=== PATIENT | male | born 1955 | race Caucasian/White ===

== ENCOUNTER 2020-09-08 08:42 | Outpatient (CLI) | payer BC ==
[2020-09-08] MEDS ORDERED: Magnevist 469MG/ML 20 ML VIAL ONE (11:39)
== END 2020-09-08 08:43 | disposition home or self-care (01) ==
LOC: MRI 08:42
PROVIDERS: ATTEND Otolaryngology Plastic Surgery within the Head & Neck
DX: H90.A21 Sensorineural hearing loss, unilateral, right ear, with restricted hearing on the contralateral side (principal); H91.21 Sudden idiopathic hearing loss, right ear; H83.01 Labyrinthitis, right ear
CPT/HCPCS: 70553; A9579

== ENCOUNTER 2020-10-28 21:09 | Inpatient (IN) | payer BC ==
[~2020-10-28 21:09] MED LIST: Iopamidol-370 76% 500 ML 1 ML ONE
[2020-10-28 21:30] LABS: Hemoglobin 13.5 g/dL (14.0-18.0); Mean Corpuscular HGB CONC 33.7 g/dL (32.0-36.0); Mean Corpuscular Hemoglobin 33.5 pg (27.0-31.0); Mean Corpuscular Volume 99.6 fL (78.0-98.0); Mean Platelet Volume 6.2 fL (7.4-10.4); Platelet Count 350 thou/uL (130-400); RBC Distribution Width 12.6 % (11.5-14.5); Red Blood Cell (RBC) Count 4.04 mill/uL (4.70-6.10); White Blood Cell (WBC) Count 19.7 thou/uL (4.8-10.8)
[2020-10-28] MEDS ORDERED: Cefepime 2 GM VIAL ONE (21:34)
[2020-10-28 21:37] LABS: Prothrombin Time 13.3 sec (12.0-14.7)
[2020-10-28 21:48] LABS: Lymphocytes 1 % (21-51); MDiff Complete? YES; Monocytes 3 % (0-10); Neutrophil 95 % (42-75); Platelet Morphology Comment Appears Adequate
[2020-10-28] MEDS ORDERED: Lorazepam 2 MG/ML VIAL ONE (21:50)
[2020-10-28 21:54] LABS: ALT (SGPT) 92 U/L (8-55); AST (SGOT) 142 U/L (5-34); Albumin 4.1 g/dL (3.4-4.8); Alkaline Phosphatase 106 U/L (40-110); Anion Gap 31 mmol/L (10-20); BUN (Urea Nitrogen) 20 mg/dL (8.4-25.7); Bilirubin, Total 1.4 mg/dL (0.2-1.2); Calc. Creatinine Clearance 0 mL/min (70-130); Calcium 9.1 mg/dL (7.8-10.44); Carbon Dioxide 11 mmol/L (23-31); Chloride 97 mmol/L (98-107); Glucose 112 mg/dL (80-115); Lipase 40 U/L (8-78); Potassium 4.7 mmol/L (3.5-5.1); Protein, Total 8.1 g/dL (5.8-8.1); Sodium 134 mmol/L (136-145)
[2020-10-28] MEDS ORDERED: Vancomycin 1 GM/200 ML BAG ONE ×2 (22:20→23:17)
[2020-10-28 22:23] LABS: Analyzer IN Cardio ER; Base Excess (BEa) -8.2 mEq/L (-2.0 to +3.0); Calcium, Ionized (arterial) 1.02 mmol/L (1.12-1.30); Carboxyhemoglobin (COHb) 0.3 gm% (0.0-3.0); O2 Tension (PaO2), arterial 78.9 mmHg (> 80.0); pH, Arterial 7.39 (7.35-7.45)
[2020-10-28 22:25] LABS: CO2 Tension 25.6 mmHg (35.0-45.0); Puncture Site LRA
[2020-10-28] MEDS ORDERED: Ondansetron PF 4 MG/2 ML Vial ONE (23:47)
[2020-10-28 23:50] LABS: SARS-CoV-2 NAA Rapid Test Not Detected (NotDetected)
[2020-10-29 00:17] LABS: Hemoglobin 12.4 g/dL (14.0-18.0)
[2020-10-29] MEDS ORDERED: Diazepam 5 MG TAB PO PRN (00:24)
[2020-10-29] MEDS ORDERED: Thiamine HCl 200 MG/2 ML VIAL IM SCH (00:30)
[2020-10-29] MEDS ORDERED: Diazepam 5 MG TAB PO SCH (00:30)
[2020-10-29 00:32] LABS: Lactic Acid 3.8 mmol/L (0.5-2.2)
[2020-10-29 01:04] LABS: Magnesium 1.2 mg/dL (1.6-2.6); Phosphorus 5.1 mg/dL (2.3-4.7)
[2020-10-29] MEDS ORDERED: Ondansetron PF 4 MG/2 ML Vial IVP PRN ×2 (02:15→02:48)
[2020-10-29] MEDS ORDERED: Ondansetron ODT 4 MG TAB SL PRN (02:15)
[2020-10-29] MEDS ORDERED: Acetaminophen 325 MG TAB PO PRN ×2 (02:15→02:48)
[2020-10-29] MEDS ORDERED: Acetaminophen 650 MG Suppository PR PRN (02:48)
[2020-10-29] MEDS ORDERED: Lorazepam 2 MG/ML VIAL SLOW IVP PRN (02:48)
[2020-10-29] MEDS ORDERED: Ondansetron ODT 4 MG TAB PO PRN (02:48)
[2020-10-29] MEDS: Lactated Ringer's 1,000 ML IV SCH ×4 (03:26→20:17)
[2020-10-29 04:11] VITALS: BMI 27.8
[2020-10-29] MEDS ORDERED: Magnesium 2 GM/50 ML 2 GM in Premix Bag 1 BAG IVPB SCH (04:45)
[2020-10-29 05:00] LABS: #Lymphocytes 0.7 thou/uL (1.20-3.40); #Neutrophils 8.7 thou/uL (1.40-6.50); %Basophils 0.2 % (0.0-1.0); %Eosinophils 0.1 % (0.0-10.0); %Lymphocytes 6.6 % (21.0-51.0); %Monocytes 9.9 % (0.0-10.0); %Neutrophils 83.3 % (42.0-75.0); Hemoglobin 11.6 g/dL (14.0-18.0); Mean Corpuscular Hemoglobin 36.1 pg (27.0-31.0); Platelet Count 242 thou/uL (130-400); RBC Distribution Width 12.4 % (11.5-14.5); Red Blood Cell (RBC) Count 3.22 mill/uL (4.70-6.10); White Blood Cell (WBC) Count 10.5 thou/uL (4.8-10.8)
[2020-10-29 05:16] LABS: Anion Gap 15 mmol/L (10-20); BUN (Urea Nitrogen) 22 mg/dL (8.4-25.7); Calc. Creatinine Clearance 57 mL/min (70-130); Calcium 7.8 mg/dL (7.8-10.44); Carbon Dioxide 20 mmol/L (23-31); Cardiac Risk 1.7 (Less than 4.5); Chloride 101 mmol/L (98-107); Cholesterol 161 mg/dl (< 200 Desired); Glucose 115 mg/dL (80-115); HDL Cholesterol 97 mg/dL (>60 Neg Risk); LDL Cholesterol, Calculated 52 mg/dL; Potassium 4.9 mmol/L (3.5-5.1); Sodium 131 mmol/L (136-145); Triglycerides 59 mg/dL (Less than 150)
[2020-10-29] MEDS ORDERED: Loratadine 10 MG TAB PO PRN (07:32)
[2020-10-29] MEDS: Pantoprazole 40 MG VIAL IVP SCH ×2 (08:16→20:17)
[2020-10-29] MEDS: Lisinopril 10 MG TAB PO SCH ×2 (08:16→20:15)
[2020-10-29] MEDS: Rosuvastatin 10 MG TAB PO SCH (08:17)
[2020-10-29] MEDS: Folic Acid 1 MG TAB PO SCH (08:17)
[2020-10-29] MEDS: Cefepime 2 GM in Sodium Chloride 0.9% 100 ML IVPB SCH ×2 (08:17→20:17)
[2020-10-29] MEDS: Metoprolol Tartrate 100 MG TAB PO SCH (08:17)
[2020-10-29] MEDS: Multivitamin W/ Minerals 1 TAB PO SCH (08:17)
[2020-10-29 10:38] LABS: HBSAg Index 0.19 S/CO (0-0.99); Hep B Surf Ag Non-Reactive S/CO (NonReactive); Hep C IgG Ab Non-Reactive (NonReactive)
[2020-10-29] MEDS ORDERED: Vancomycin 1.5 GRAM/300 ML BAG 1.5 GM in Premix Bag 1 BAG IVPB SCH (22:00)
[2020-10-30] MEDS ORDERED: Diazepam 5 MG TAB PO PRN (04:00)
[2020-10-30 04:18] LABS: #Eosinphils 0.1 thou/uL (0.0-0.7); #Lymphocytes 1.2 thou/uL (1.20-3.40); #Monocytes 0.6 thou/uL (0.11-0.59); #Neutrophils 4.2 thou/uL (1.40-6.50); %Basophils 0.7 % (0.0-1.0); %Eosinophils 0.9 % (0.0-10.0); %Lymphocytes 20.2 % (21.0-51.0); %Monocytes 9.2 % (0.0-10.0); %Neutrophils 69.1 % (42.0-75.0); Hemoglobin 10.7 g/dL (14.0-18.0); Mean Corpuscular HGB CONC 34.1 g/dL (32.0-36.0); Mean Corpuscular Hemoglobin 34.6 pg (27.0-31.0); Mean Platelet Volume 6.2 fL (7.4-10.4); Platelet Count 199 thou/uL (130-400); RBC Distribution Width 12.5 % (11.5-14.5); Red Blood Cell (RBC) Count 3.08 mill/uL (4.70-6.10); White Blood Cell (WBC) Count 6.1 thou/uL (4.8-10.8)
[2020-10-30 04:42] LABS: Anion Gap 11 mmol/L (10-20); BUN (Urea Nitrogen) 17 mg/dL (8.4-25.7); Calc. Creatinine Clearance 71 mL/min (70-130); Calcium 7.8 mg/dL (7.8-10.44); Carbon Dioxide 25 mmol/L (23-31); Chloride 101 mmol/L (98-107); Glucose 100 mg/dL (80-115); Potassium 4.3 mmol/L (3.5-5.1); Sodium 133 mmol/L (136-145)
[2020-10-30] MEDS: Metoprolol Tartrate 100 MG TAB PO SCH (06:10)
[2020-10-30 06:20] LABS: ALT (SGPT) 55 U/L (8-55); AST (SGOT) 67 U/L (5-34)
[2020-10-30] MEDS ORDERED: ALPRAZolam 0.5 MG TAB PO PRN (08:24)
[2020-10-30] MEDS ORDERED: hydrOXYzine 25 MG TAB PO PRN (08:54)
[2020-10-30] MEDS ORDERED: Midazolam HCl 2 mg/2 ml Vial ONE (09:01)
[2020-10-30] MEDS ORDERED: PROPOFOL 200 MG/20 ML VIAL ONE (09:06)
[2020-10-30] MEDS ORDERED: Lidocaine 1% PF 5 ML VIAL ONE (09:06)
[2020-10-30] MEDS ORDERED: Glycopyrrolate 0.2 MG/ML 5 ML SYRINGE ONE (09:06)
[2020-10-30] MEDS: Pantoprazole 40 MG VIAL IVP SCH (10:57)
[2020-10-30] MEDS: Folic Acid 1 MG TAB PO SCH (10:58)
[2020-10-30] MEDS: Magnesium Oxide 400 MG TAB PO SCH (10:58)
[2020-10-30] MEDS: Lisinopril 10 MG TAB PO SCH ×2 (10:58→19:54)
[2020-10-30] MEDS: Multivitamin W/ Minerals 1 TAB PO SCH (10:58)
[2020-10-30] MEDS: Thiamine 100 MG TAB PO SCH (10:58)
[2020-10-30] MEDS: Rosuvastatin 10 MG TAB PO SCH (10:58)
[2020-10-30] MEDS: Lactated Ringer's 1,000 ML IV SCH ×3 (14:09→19:50)
[2020-10-31] MEDS: Lactated Ringer's 1,000 ML IV SCH (05:07)
[2020-10-31 06:44] LABS: #Eosinphils 0.1 thou/uL (0.0-0.7); #Lymphocytes 1.4 thou/uL (1.20-3.40); #Monocytes 0.6 thou/uL (0.11-0.59); #Neutrophils 3.6 thou/uL (1.40-6.50); %Basophils 0.7 % (0.0-1.0); %Eosinophils 2.4 % (0.0-10.0); %Lymphocytes 24.1 % (21.0-51.0); %Monocytes 10.2 % (0.0-10.0); %Neutrophils 62.6 % (42.0-75.0); Hemoglobin 10.5 g/dL (14.0-18.0); Mean Corpuscular HGB CONC 34.3 g/dL (32.0-36.0); Mean Corpuscular Hemoglobin 34.8 pg (27.0-31.0); Mean Platelet Volume 6.3 fL (7.4-10.4); Platelet Count 191 thou/uL (130-400); RBC Distribution Width 12.2 % (11.5-14.5); Red Blood Cell (RBC) Count 3.02 mill/uL (4.70-6.10); White Blood Cell (WBC) Count 5.8 thou/uL (4.8-10.8)
[2020-10-31 07:05] LABS: ALT (SGPT) 69 U/L (8-55); AST (SGOT) 117 U/L (5-34); Albumin 3.4 g/dL (3.4-4.8); Alkaline Phosphatase 80 U/L (40-110); Anion Gap 13 mmol/L (10-20); BUN (Urea Nitrogen) 12 mg/dL (8.4-25.7); Bilirubin, Total 1.3 mg/dL (0.2-1.2); Calc. Creatinine Clearance 84 mL/min (70-130); Calcium 8.7 mg/dL (7.8-10.44); Carbon Dioxide 25 mmol/L (23-31); Chloride 99 mmol/L (98-107); Glucose 95 mg/dL (80-115); Potassium 4.4 mmol/L (3.5-5.1); Protein, Total 6.4 g/dL (5.8-8.1); Sodium 133 mmol/L (136-145)
[2020-10-31 07:45] VITALS: BP 159/88; TEMP 98.1
[2020-10-31] MEDS: Multivitamin W/ Minerals 1 TAB PO SCH (09:33)
[2020-10-31] MEDS: Thiamine 100 MG TAB PO SCH (09:33)
[2020-10-31] MEDS: Folic Acid 1 MG TAB PO SCH (09:33)
[2020-10-31] MEDS: Rosuvastatin 10 MG TAB PO SCH (09:33)
[2020-10-31] MEDS: Magnesium Oxide 400 MG TAB PO SCH (09:33)
[2020-10-31] MEDS: Metoprolol Tartrate 100 MG TAB PO SCH (09:33)
[2020-10-31] MEDS: Lisinopril 10 MG TAB PO SCH (09:33)
== END 2020-10-31 12:05 | disposition home or self-care (01) | DRG 378 ==
LOC: ERS 21:09 → CCU 23:03 → IMCU/EMU 10-29 20:03 → ONC 10-30 12:49
PROVIDERS: ADMIT Family Medicine; ATTEND Family Medicine
PROC: 0DB78ZX Excision of Stomach, Pylorus, Via Natural or Artificial Opening Endoscopic, Diagnostic (ICD-10-PCS; principal; 2020-10-30)
DX: K29.21 Alcoholic gastritis with bleeding (principal); G45.9 Transient cerebral ischemic attack, unspecified; N17.9 Acute kidney failure, unspecified; I48.91 Unspecified atrial fibrillation; E78.5 Hyperlipidemia, unspecified; F43.10 Post-traumatic stress disorder, unspecified; G89.29 Other chronic pain; Z80.6 Family history of leukemia; Z82.49 Family history of ischemic heart disease and other diseases of the circulatory system; F17.220 Nicotine dependence, chewing tobacco, uncomplicated; F10.10 Alcohol abuse, uncomplicated; R32 Unspecified urinary incontinence; K70.10 Alcoholic hepatitis without ascites; F41.9 Anxiety disorder, unspecified; K44.9 Diaphragmatic hernia without obstruction or gangrene; K21.00 Gastro-esophageal reflux disease with esophagitis, without bleeding; K29.70 Gastritis, unspecified, without bleeding; E86.0 Dehydration
CPT/HCPCS: 36415; 36600; 70450; 70496; 70498; 70551; 71045; 72148; 76705; 80048; 80053; 80061; 82274; 82550; 82805; 83605; 83690; 83735; 83880; 84100; 84145; 84443; 84450; 84460; 84484; 85014; 85018; 85025; 85610; 85730; 86803; 86850; 86900; 86901; 87040; 87340; 88305; 93005; 93306; 96365; 96367; 96375; C9113; J0692; J2060; J2250; J2405; J2704; J3370; J3475; J3490; Q9967; U0002

== ENCOUNTER 2023-11-20 10:24 | Outpatient (CLI) | payer BC, MEDICARE | END 2023-11-20 10:25 | disposition home or self-care (01) | LOC: BICRAD 10:24 | PROVIDERS: ATTEND Family Medicine | DX: M19.90 Unspecified osteoarthritis, unspecified site (principal) ==

== ENCOUNTER 2025-01-26 19:52 | Observation (INO) | payer MEDICARE ==
[2025-01-26 20:26] LABS: #Basophils 0.08 10x3/uL (0.0-0.2); #Eosinophils 0.20 10x3/uL (0.0-0.7); #Monocytes 0.73 10x3/uL (0.11-0.59); #Neutrophils 6.92 10x3/uL (1.40-6.50); %Basophils 0.8 % (0.0-1.0); %Eosinophils 2.0 % (0.0-10.0); %Lymphocytes 20.2 % (21.0-51.0); %Monocytes 7.3 % (0.0-10.0); %Neutrophils 69.4 % (42.0-75.0); Hematocrit 45.6 % (42.0-52.0); Hemoglobin 16.1 g/dL (14.0-18.0); Mean Corpuscular Hemoglobin 33.1 pg (27.0-31.0); Mean Corpuscular Volume 93.6 fL (78.0-98.0); Platelet Count 293 10x3/uL (130-400); Red Blood Cell (RBC) Count 4.87 mill/uL (4.70-6.10); White Blood Cell (WBC) Count 9.98 10x3/uL (4.8-10.8)
[2025-01-26 20:48] LABS: Troponin I Less than 0.010 ng/mL (< 0.028)
[2025-01-26 21:10] LABS: ALT (SGPT) 29 U/L (Less than 45); AST (SGOT) 47 U/L (11-34); Albumin 4.2 g/dL (3.1-4.5); Alkaline Phosphatase 89 U/L (40-110); Anion Gap 18 mmol/L (10-20); BUN (Urea Nitrogen) 11 mg/dL (8.4-25.7); Bilirubin, Total 1.3 mg/dL (0.3-1.2); CK (CPK) 43 U/L (30-200); Calc. Creatinine Clearance 0 mL/min (70-130); Calcium 9.8 mg/dL (7.8-10.44); Carbon Dioxide 22 mmol/L (23-31); Chloride 102 mmol/L (98-107); Globulin 4.5 g/dL (2.4-3.5); Glucose 109 mg/dL (80-115); Potassium 4.2 mmol/L (3.5-5.1); Sodium 138 mmol/L (136-145)
[2025-01-26 22:03] LABS: Acetaminophen Less than 10 mcg/mL (Less than 10); Salicylate Less than 8.0 mg/dL (Less than 8.0)
[2025-01-27 00:13] VITALS: BMI 28.5
[2025-01-27 00:19] LABS: Troponin I 0.010 ng/mL (< 0.028)
[2025-01-27 03:17] LABS: #Basophils 0.07 10x3/uL (0.0-0.2); #Eosinophils 0.21 10x3/uL (0.0-0.7); #Monocytes 0.70 10x3/uL (0.11-0.59); #Neutrophils 4.84 10x3/uL (1.40-6.50); %Basophils 0.9 % (0.0-1.0); %Eosinophils 2.8 % (0.0-10.0); %Lymphocytes 21.9 % (21.0-51.0); %Monocytes 9.4 % (0.0-10.0); %Neutrophils 64.7 % (42.0-75.0); Hematocrit 40.5 % (42.0-52.0); Hemoglobin 14.0 g/dL (14.0-18.0); Mean Corpuscular Hemoglobin 32.9 pg (27.0-31.0); Mean Corpuscular Volume 95.1 fL (78.0-98.0); Platelet Count 221 10x3/uL (130-400); Red Blood Cell (RBC) Count 4.26 mill/uL (4.70-6.10); White Blood Cell (WBC) Count 7.48 10x3/uL (4.8-10.8)
[2025-01-27 03:37] LABS: ALT (SGPT) 22 U/L (Less than 45); AST (SGOT) 34 U/L (11-34); Albumin 3.5 g/dL (3.1-4.5); Alkaline Phosphatase 71 U/L (40-110); Anion Gap 15 mmol/L (10-20); BUN (Urea Nitrogen) 13 mg/dL (8.4-25.7); Bilirubin, Total 1.4 mg/dL (0.3-1.2); Calc. Creatinine Clearance 86 mL/min (70-130); Calcium 8.4 mg/dL (7.8-10.44); Carbon Dioxide 21 mmol/L (23-31); Cardiac Risk 2.8 (Less than 4.5); Chloride 104 mmol/L (98-107); Cholesterol 254 mg/dl (< 200 Desired); Globulin 3.4 g/dL (2.4-3.5); Glucose 90 mg/dL (80-115); HDL Cholesterol 91 mg/dL (>60 Neg Risk); LDL Cholesterol, Calculated 147 mg/dL; Potassium 3.8 mmol/L (3.5-5.1); Sodium 136 mmol/L (136-145); Triglycerides 82 mg/dL (Less than 150)
[2025-01-27 03:40] LABS: Troponin I Less than 0.010 ng/mL (< 0.028)
[2025-01-27] MEDS: Sertraline 100 MG TAB PO SCH (08:50)
[2025-01-27 11:48] VITALS: BP 154/81; TEMP 97.8
== END 2025-01-27 16:45 | disposition home or self-care (01) ==
LOC: ERS 19:52 → 2NO 22:39
PROVIDERS: ADMIT Family Medicine; ATTEND Family Medicine
DX: I24.9 Acute ischemic heart disease, unspecified (principal); I10 Essential (primary) hypertension; I48.91 Unspecified atrial fibrillation; G45.9 Transient cerebral ischemic attack, unspecified; F41.9 Anxiety disorder, unspecified; Z79.01 Long term (current) use of anticoagulants; Z79.899 Other long term (current) drug therapy
CPT/HCPCS: 36415; 71045; 78452; 80053; 80061; 80307; 82550; 84443; 84484; 85025; 93005; 93017; A9502; A9537; J2785

== ENCOUNTER 2025-06-22 07:48 | Emergency (ER) | payer BC, MEDICARE ==
[2025-06-22 09:10] LABS: #Basophils 0.03 10x3/uL (0.0-0.2); #Eosinophils 0.03 10x3/uL (0.0-0.7); #Monocytes 1.11 10x3/uL (0.11-0.59); #Neutrophils 6.63 10x3/uL (1.40-6.50); %Basophils 0.3 % (0.0-1.0); %Eosinophils 0.3 % (0.0-10.0); %Lymphocytes 8.6 % (21.0-51.0); %Monocytes 12.8 % (0.0-10.0); %Neutrophils 76.8 % (42.0-75.0); Hematocrit 38.2 % (42.0-52.0); Hemoglobin 13.5 g/dL (14.0-18.0); Mean Corpuscular Hemoglobin 35.0 pg (27.0-31.0); Mean Corpuscular Volume 99.0 fL (78.0-98.0); Platelet Count 172 10x3/uL (130-400); Red Blood Cell (RBC) Count 3.86 mill/uL (4.70-6.10); White Blood Cell (WBC) Count 8.64 10x3/uL (4.8-10.8)
[2025-06-22 09:22] LABS: ALT (SGPT) 61 U/L (Less than 45); AST (SGOT) 65 U/L (11-34); Albumin 3.4 g/dL (3.1-4.5); Alkaline Phosphatase 97 U/L (40-110); Anion Gap 23 mmol/L (10-20); BUN (Urea Nitrogen) 18 mg/dL (8.4-25.7); Bilirubin, Total 1.4 mg/dL (0.3-1.2); Calc. Creatinine Clearance 0 mL/min (70-130); Calcium 9.4 mg/dL (7.8-10.44); Carbon Dioxide 23 mmol/L (23-31); Chloride 92 mmol/L (98-107); Globulin 4.1 g/dL (2.4-3.5); Glucose 125 mg/dL (80-115); Lipase 148 U/L (8-78); Magnesium 1.5 mg/dL (1.6-2.6); Potassium 3.3 mmol/L (3.5-5.1); Sodium 135 mmol/L (136-145)
[2025-06-22 09:24] LABS: INR-International Normal Ratio 1.4; PTT 43.3 sec (22.9-36.1); Prothrombin Time 17.5 sec (12.0-14.7)
[2025-06-22 12:20] LABS: Bacteria/HPF None Seen HPF (None Seen); CAUTI Indications for Culture Alt mental st,lethar; Glucose, Urine (Dipstick) Normal (Negative); Leukocyte 250 Leu/uL (Negative); Protein, Urine (Dipstick) 10 mg/dL (Neg-Trace); WBC/HPF 0-3 HPF (0-3)
[2025-06-22 12:21] LABS: Specific Gravity, Urine Greater than 1.050 (1.002-1.036); Urine Culture Reflex No No
== END 2025-06-22 13:50 | disposition home or self-care (01) ==
LOC: ERS 07:48
DX: R41.82 Altered mental status, unspecified (principal); F10.239 Alcohol dependence with withdrawal, unspecified; H10.9 Unspecified conjunctivitis; R44.3 Hallucinations, unspecified; E87.6 Hypokalemia; I10 Essential (primary) hypertension; I48.91 Unspecified atrial fibrillation; F17.220 Nicotine dependence, chewing tobacco, uncomplicated; Z79.01 Long term (current) use of anticoagulants; Y90.0 Blood alcohol level of less than 20 mg/100 ml
CPT/HCPCS: 70450; 70496; 70498; 80053; 80307; 81001; 82140; 83605; 83690; 83735; 85025; 85610; 85730; 93005; J2060; 36415; 96361; 96374